=== PATIENT | male | born 1940 | race Caucasian/White ===

== ENCOUNTER 2017-01-17 23:52 | Emergency (ER) | payer MEDICARE ==
[~2017-01-17] VITALS: Ht 175.3 cm; Wt 75.0 kg
[~2017-01-17 23:52] MED LIST: 00186-0370-20 IH; BUFFERED ASPIRIN; CARAFATE1 GM PO; CEPHALEXIN500 M1 PO; CLOPIDOGREL; HYZAAR 12.5 MG-1 TAB PO; LEVAQUIN; LOPRESSOR; OMEPRAZOLE DR20 MG PO; PRILOSEC 20MG20 MG PO; SEPTRA DS 8001 TAB PO; ST. JOSEPH81 M2 PO; TOPROL XL 25MG25 MG PO; TYLENOL 500MG500 MG PO; ZYRTEC 10MG10 MG PO; [UNRECOGNIZED DRUG - OTHER] PO
[2017-01-17 23:56] VITALS: TEMP 97.9
[2017-01-18] MEDS ORDERED: MUCINEX 60600 MG/TA1 PO (00:57)
[2017-01-18] MEDS ORDERED: PROTONIX 40MG T40 MG PO (00:57)
[2017-01-18] MEDS ORDERED: SPIRIVA RE2.5 MCG/Ac IH (00:58)
[2017-01-18] MEDS ORDERED: PREDNISONE20 MG PO (01:09)
[2017-01-18 01:30] VITALS: BP 144/84; PULSE 79
== END 2017-01-18 01:31 | disposition home or self-care (01) ==
LOC: COL.ER 23:52
DX: J44.1 Chronic obstructive pulmonary disease with (acute) exacerbation (principal); Z79.82 Long term (current) use of aspirin
CPT/HCPCS: J7512

== ENCOUNTER 2017-05-26 11:48 | Emergency (ER) | payer MEDICARE ==
[~2017-05-26] VITALS: Ht 175.3 cm; Wt 77.3 kg
[~2017-05-26 11:48] MED LIST changes: +MUCINEX 60600 MG/TA1 PO; +PREDNISONE20 MG PO; +PROTONIX 40MG T40 MG PO; +SPIRIVA RE2.5 MCG/Ac IH
[2017-05-26 11:50] VITALS: TEMP 98
[2017-05-26 12:23] LABS: BASO # 0.1 (0.0-0.2); BASO % 1.1 % (0.0-2.0); EOS # 0.6 (0.0-0.7); EOS % 8.5 % (0-4.0); GRAN % 56.8 % (42.2-75.2); LYMPH # 1.7 (1.2-3.4); LYMPH % 23.8 % (20.0-51.0); MEAN CELL VOLUME 78 fl (80.0-100.0); MEAN CORPUSCULAR HGB CONC 30 g/dl (33.0-37.0); MEAN PLATELET VOLUME 9.4 fl (7.4-10.4); MONO # 0.7 (0.1-0.6); MONO % 9.5 % (1.7-9.3); PLATELET COUNT 325 K/mm3 (130-400); RED BLOOD COUNT 3.86 M/mm3 (4.20-5.60); REDCELL DISTRIBUTION WIDTH-CV 15.8 % (11.5-14.5)
[2017-05-26 12:25] LABS: HEMATOCRIT 30.2 % (42.0-52.0); HEMOGLOBIN 8.9 g/dl (13.5-18.0); MEAN CORPUSCULAR HEMOGLOBIN 23 pg (27.0-31.0)
[2017-05-26 12:29] LABS: PROTHROMBIN TIME 11.4 SECONDS (9.7-12.8)
[2017-05-26 12:36] LABS: ALANINE AMINOTRANSFERASE 29 U/L (21-72); ALBUMIN 4.4 gm/dL (3.5-5.0); ALKALINE PHOSPHATASE 79 U/L (50-136); ANION GAP 12 mmol/L (7-16); AST,SGOT 30 U/L (15-37); BILIRUBIN,TOTAL 0.3 mg/dL (0.0-1.0); BLOOD UREA NITROGEN 23 mg/dL (9-20); CALCIUM 10.2 mg/dL (8.4-10.2); CARBON DIOXIDE 24 mmol/L (22-30); CHLORIDE 102 mmol/L (98-107); GLUCOSE 109 mg/dL (74-106); SODIUM 139 mmol/L (137-145); TOTAL PROTEIN 7.6 gm/dL (6.4-8.2)
[2017-05-26] MEDS ORDERED: SINGULAIR 110 MG/TAB PO (12:38)
[2017-05-26] MEDS ORDERED: FLONASEALLERGY NS (12:39)
[2017-05-26] MEDS ORDERED: PROAIR HFA0.09 MG/AC IH (12:40)
[2017-05-26] MEDS ORDERED: TYLENOL 500MG500 MG PO (12:41)
[2017-05-26] MEDS ORDERED: EPA FISH OIL1 SGL PO (12:42)
[2017-05-26] MEDS ORDERED: PROBIOTIC FORMU1 CAP PO (12:43)
[2017-05-26] MEDS ORDERED: MULTI VITAMINS1 TAB PO (12:43)
[2017-05-26 13:04] LABS: TROPONIN-I < 0.012 ng/mL (0.000-0.034)
[2017-05-26 14:56] VITALS: BP 128/63; PULSE 79
== END 2017-05-26 14:59 | disposition home or self-care (01) ==
LOC: COL.ER 11:48
PROVIDERS: Emergency Medicine
DX: I48.91 Unspecified atrial fibrillation (principal); D50.9 Iron deficiency anemia, unspecified; I25.10 Atherosclerotic heart disease of native coronary artery without angina pectoris; I10 Essential (primary) hypertension; Z95.5 Presence of coronary angioplasty implant and graft; Z79.82 Long term (current) use of aspirin
CPT/HCPCS: J0282; J7030; J7050; J7060

== ENCOUNTER 2017-06-07 12:56 | Outpatient (RCR) | payer MEDICARE ==
[~2017-06-07] VITALS: Ht 175.3 cm; Wt 79.8 kg
[~2017-06-07 12:56] MED LIST changes: +EPA FISH OIL1 SGL PO; +FLONASEALLERGY NS; +MULTI VITAMINS1 TAB PO; +PROAIR HFA0.09 MG/AC IH; +PROBIOTIC FORMU1 CAP PO; +SINGULAIR 110 MG/TAB PO
[2017-06-07 13:23] LABS: HEMATOCRIT 25.1 % (42.0-52.0); HEMOGLOBIN 7.2 g/dl (13.5-18.0)
[2017-06-07 14:50] VITALS: BP 115/59; PULSE 64; TEMP 98
[2017-06-07 15:03] VITALS: BP 120/56; PULSE 68; TEMP 98
[2017-06-07 15:18] VITALS: BP 115/68; PULSE 66; TEMP 98
[2017-06-07 15:40] VITALS: BP 128/56; PULSE 68; TEMP 98
[2017-06-07 15:56] VITALS: BP 116/59; PULSE 66; TEMP 98
[2017-06-07 16:26] VITALS: BP 120/49; PULSE 64; TEMP 98
== END 2017-06-07 16:28 | disposition home or self-care (01) ==
LOC: EUO 12:56
PROVIDERS: Internal Medicine
DX: D62 Acute posthemorrhagic anemia (principal)
CPT/HCPCS: J7050; P9016

== ENCOUNTER 2018-05-13 23:51 | Emergency (ER) | payer MEDICARE ==
[~2018-05-13] VITALS: Ht 175.3 cm; Wt 82.3 kg
[2018-05-13 23:56] VITALS: TEMP 97.8
[2018-05-14] MEDS ORDERED: NATURAL IRON65 MG PO (00:08)
[2018-05-14] MEDS ORDERED: KAPSPARGO SPRIN25 MG PO (00:12)
[2018-05-14] MEDS ORDERED: ZYRTEC10MGSGL PO (00:12)
[2018-05-14] MEDS ORDERED: DOXYCYCLINE 10100 MG PO (00:13)
[2018-05-14] MEDS ORDERED: MUCINEX DM 30 M1 TE1 (00:13)
[2018-05-14] MEDS ORDERED: PREDNISONE10 MG PO (00:14)
[2018-05-14 00:39] LABS: HEMATOCRIT 39.9 % (42.0-52.0); HEMOGLOBIN 13.5 g/dl (13.5-18.0); MEAN CELL VOLUME 91 fl (80.0-100.0); MEAN CORPUSCULAR HEMOGLOBIN 31 pg (27.0-31.0); MEAN CORPUSCULAR HGB CONC 34 g/dl (33.0-37.0); MEAN PLATELET VOLUME 8.9 fl (7.4-10.4); PLATELET COUNT 289 K/mm3 (130-400); RED BLOOD COUNT 4.39 M/mm3 (4.20-5.60)
[2018-05-14 00:50] LABS: ALANINE AMINOTRANSFERASE 13 U/L (21-72); ALBUMIN 3.7 gm/dL (3.5-5.0); ALKALINE PHOSPHATASE 58 U/L (50-136); ANION GAP 11 mmol/L (7-16); AST,SGOT 15 U/L (15-37); BILIRUBIN,TOTAL 0.3 mg/dL (0.0-1.0); BLOOD UREA NITROGEN 28 mg/dL (9-20); CALCIUM 9.5 mg/dL (8.4-10.2); CARBON DIOXIDE 24 mmol/L (22-30); CHLORIDE 102 mmol/L (98-107); CREATININE, serum 1.12 mg/dL (0.66-1.25); GLUCOSE 151 mg/dL (74-106); LIPASE 81 U/L (23-300); POTASSIUM 4.3 mmol/L (3.4-5.0); SODIUM 137 mmol/L (137-145); TOTAL PROTEIN 6.5 gm/dL (6.4-8.2)
[2018-05-14 01:05] LABS: TROPONIN-I < 0.012 ng/mL (0.000-0.034)
[2018-05-14 01:19] LABS: BAND 4 % (0-10); LYMPHOCYTE 16 % (20.0-51.0); NEUTROPHILS 73 % (42.0-75.2); PLATELET ESTIMATE NORMAL (NORMAL)
[2018-05-14 01:36] VITALS: BP 118/70; PULSE 74
== END 2018-05-14 01:37 | disposition home or self-care (01) ==
LOC: COL.ER 23:51
PROVIDERS: Emergency Medicine
DX: I10 Essential (primary) hypertension (principal); J44.9 Chronic obstructive pulmonary disease, unspecified; I48.91 Unspecified atrial fibrillation; Z79.82 Long term (current) use of aspirin; Z79.51 Long term (current) use of inhaled steroids; Z87.891 Personal history of nicotine dependence

== ENCOUNTER 2018-12-26 22:40 | Emergency (ER) | payer MEDICARE, OTHER ==
[~2018-12-26] VITALS: Ht 175.3 cm; Wt 81.8 kg
[~2018-12-26 22:40] MED LIST changes: +DOXYCYCLINE 10100 MG PO; +KAPSPARGO SPRIN25 MG PO; +MUCINEX DM 30 M1 TE1; +NATURAL IRON65 MG PO; +PREDNISONE10 MG PO; +ZYRTEC10MGSGL PO
[2018-12-26 22:44] VITALS: TEMP 97.7
[2018-12-26] MEDS ORDERED: SINGULAIR 110 MG/TAB PO (23:05)
[2018-12-26] MEDS ORDERED: HCTZ 25MG TAB25 MG PO (23:08)
[2018-12-26] MEDS ORDERED: COZAAR100 MG PO (23:08)
[2018-12-26 23:10] LABS: BASO # 0.1 (0.0-0.2); BASO % 1.1 % (0.0-2.0); EOS # 0.9 (0.0-0.7); EOS % 13.7 % (0-4.0); GRAN # 3.7 (1.4-6.5); GRAN % 56.5 % (42.2-75.2); HEMATOCRIT 39.4 % (42.0-52.0); HEMOGLOBIN 12.9 g/dl (13.5-18.0); LYMPH # 1.3 (1.2-3.4); LYMPH % 20.2 % (20.0-51.0); MEAN CELL VOLUME 94 fl (80.0-100.0); MEAN CORPUSCULAR HEMOGLOBIN 31 pg (27.0-31.0); MEAN CORPUSCULAR HGB CONC 33 g/dl (33.0-37.0); MEAN PLATELET VOLUME 9.4 fl (7.4-10.4); MONO # 0.5 (0.1-0.6); MONO % 8.2 % (1.7-9.3); PLATELET COUNT 241 K/mm3 (130-400); RED BLOOD COUNT 4.19 M/mm3 (4.20-5.60)
[2018-12-26 23:11] LABS: PROTHROMBIN TIME 11.3 SECONDS (9.7-12.8)
[2018-12-26 23:17] LABS: ALANINE AMINOTRANSFERASE 14 U/L (21-72); ALBUMIN 4.4 gm/dL (3.5-5.0); ALKALINE PHOSPHATASE 72 U/L (50-136); ANION GAP 13 mmol/L (7-16); AST,SGOT 23 U/L (15-37); BILIRUBIN,TOTAL 0.4 mg/dL (0.0-1.0); BLOOD UREA NITROGEN 25 mg/dL (9-20); CALCIUM 9.2 mg/dL (8.4-10.2); CARBON DIOXIDE 26 mmol/L (22-30); CHLORIDE 105 mmol/L (98-107); CREATININE, serum 1.37 (0.66-1.25); GLUCOSE 114 mg/dL (74-106); POTASSIUM 3.9 mmol/L (3.4-5.0); SODIUM 144 mmol/L (137-145); TOTAL PROTEIN 7.6 gm/dL (6.4-8.2)
[2018-12-26 23:28] LABS: TROPONIN-I < 0.012 ng/mL (0.000-0.035)
[2018-12-27] MEDS ORDERED: PREDNISONE20 MG PO (01:20)
[2018-12-27] MEDS ORDERED: DOXYCYCLINE 10100 MG PO (01:20)
[2018-12-27 02:25] VITALS: BP 121/88; PULSE 108
== END 2018-12-27 02:25 | disposition home or self-care (01) ==
LOC: COL.ER 22:40
PROVIDERS: Emergency Medicine
DX: J44.1 Chronic obstructive pulmonary disease with (acute) exacerbation (principal); I10 Essential (primary) hypertension; I48.91 Unspecified atrial fibrillation; Z87.891 Personal history of nicotine dependence; Z79.82 Long term (current) use of aspirin; Z79.51 Long term (current) use of inhaled steroids
CPT/HCPCS: J2930; J3475; J7040

== ENCOUNTER → 2019-01-04 | Outpatient (CLI) | payer MEDICARE ==
[~2019-01-04] MED LIST changes: +COZAAR100 MG PO; +HCTZ 25MG TAB25 MG PO
[2019-01-04 10:03] LABS: BASO # 0.1 (0.0-0.2); BASO % 0.6 % (0.0-2.0); EOS # 0.4 (0.0-0.7); GRAN # 7.6 (1.4-6.5); GRAN % 69.7 % (42.2-75.2); HEMATOCRIT 37.7 % (42.0-52.0); HEMOGLOBIN 12.5 g/dl (13.5-18.0); LYMPH # 1.3 (1.2-3.4); MEAN CELL VOLUME 92 fl (80.0-100.0); MEAN CORPUSCULAR HEMOGLOBIN 31 pg (27.0-31.0); MEAN CORPUSCULAR HGB CONC 33 g/dl (33.0-37.0); MEAN PLATELET VOLUME 9.6 fl (7.4-10.4); MONO % 9.1 % (1.7-9.3); PLATELET COUNT 296 K/mm3 (130-400); RED BLOOD COUNT 4.09 M/mm3 (4.20-5.60)
[2019-01-04 10:58] LABS: ALBUMIN 3.3 gm/dL (3.5-5.0); BILIRUBIN,TOTAL 0.6 mg/dL (0.0-1.0); CALCIUM 9.2 mg/dL (8.4-10.2); CREATININE, serum 1.16 (0.66-1.25); POTASSIUM 3.8 mmol/L (3.4-5.0)
[2019-01-04 11:13] LABS: TROPONIN-I 0.022 ng/mL (0.000-0.035)
== END ==
LOC: ZCOL.LAB 09:52
PROVIDERS: Nurse Practitioner Family
DX: I48.0 Paroxysmal atrial fibrillation (principal); I25.10 Atherosclerotic heart disease of native coronary artery without angina pectoris

== ENCOUNTER 2020-05-02 11:43 | Outpatient (CLI) | payer MEDICARE ==
[~2020-05-02] VITALS: Ht 175.3 cm; Wt 79.5 kg
[2020-05-02 12:12] VITALS: BP 134/63; PULSE 64; TEMP 99
[2020-05-02] MEDS ORDERED: MUCINEX 60600 MG/TA1 PO (12:23)
[2020-05-02] MEDS ORDERED: IRON TABLETS325 MG PO (12:24)
[2020-05-02] MEDS ORDERED: HCTZ 25MG TAB25 MG PO (12:24)
[2020-05-02] MEDS ORDERED: COZAAR100 MG PO (12:24)
[2020-05-02] MEDS ORDERED: ASPIRIN E.C. 8181 MG PO (12:24)
[2020-05-02] MEDS ORDERED: FISH OIL 500 M1 EAC1 PO (12:25)
[2020-05-02] MEDS ORDERED: TRELEGY ELLIPT1 EACH IH (12:25)
[2020-05-02] MEDS ORDERED: ATROVENT I0.2 MG/1 M IH (12:25)
[2020-05-02] MEDS ORDERED: TOPROL XL 25MG25 MG PO (12:26)
[2020-05-02] MEDS ORDERED: SINGULAIR 110 MG/TAB PO (12:26)
[2020-05-02] MEDS ORDERED: ZYRTEC 10MG10 MG PO (12:26)
[2020-05-02] MEDS ORDERED: ATROVENT INHALE14 GM IH (12:27)
[2020-05-02 12:30] VITALS: BP 131/62; PULSE 61
[2020-05-02 13:00] VITALS: BP 119/58; PULSE 63; TEMP 98.2
[2020-05-02 13:30] VITALS: BP 119/74; PULSE 70
[2020-05-02 14:00] VITALS: BP 118/73; PULSE 61; TEMP 98.3
--- NOTE | 2020-05-02 14:20 | NUR ---
Pt tolerates BAM infusion without issue. INT DC'd with catheter intact and dressing intact. He exits dept under own power, wrapped in bath blanket per protocol.
== END 2020-05-02 14:20 | disposition home or self-care (01) ==
LOC: EUO 11:43
DX: U07.1 COVID-19 (principal)
CPT/HCPCS: J7050

== ENCOUNTER 2020-09-05 16:15 | Emergency (ER) | payer MEDICARE ==
[~2020-09-05] VITALS: Ht 172.7 cm; Wt 77.7 kg
[~2020-09-05 16:15] MED LIST changes: +ASPIRIN E.C. 8181 MG PO; +ATROVENT I0.2 MG/1 M IH; +ATROVENT INHALE14 GM IH; +BRILINTA90 MG PO; +FISH OIL 500 M1 EAC1 PO; +IRON TABLETS325 MG PO; +LIPITOR 80MG80 MG PO; +OMEGA-3 1000 MG1 CAP PO; +PRIL40 PO; +TRELEGY ELLIPT1 EACH IH
[2020-09-05 16:22] VITALS: TEMP 98.3
[2020-09-05 16:47] LABS: BASO # 0.1 (0.0-0.2); BASO % 0.7 % (0.0-2.0); EOS # 0.1 (0.0-0.7); EOS % 1.4 % (0-4.0); GRAN # 5.1 (1.4-6.5); GRAN % 70.9 % (42.2-75.2); LYMPH # 1.3 (1.2-3.4); LYMPH % 18.5 % (20.0-51.0); MEAN CELL VOLUME 91 fl (80.0-100.0); MEAN CORPUSCULAR HGB CONC 30 g/dl (33.0-37.0); MEAN PLATELET VOLUME 8.7 fl (7.4-10.4); MONO # 0.6 (0.1-0.6); MONO % 7.9 % (1.7-9.3); PLATELET COUNT 336 K/mm3 (130-400); RED BLOOD COUNT 3.15 M/mm3 (4.20-5.60); REDCELL DISTRIBUTION WIDTH-CV 15.3 % (11.5-14.5)
[2020-09-05 16:48] LABS: HEMATOCRIT 28.6 % (42.0-52.0); HEMOGLOBIN 8.7 g/dl (13.5-18.0); MEAN CORPUSCULAR HEMOGLOBIN 28 pg (27.0-31.0)
[2020-09-05 16:54] LABS: INR 1.2 (0.8-3.0)
[2020-09-05 16:59] LABS: ALANINE AMINOTRANSFERASE 36 U/L (4-49); ALBUMIN 3.9 gm/dL (3.5-5.0); ALKALINE PHOSPHATASE 167 U/L (50-136); ANION GAP 12 mmol/L (7-16); AST,SGOT 59 U/L (15-37); BILIRUBIN,TOTAL 0.4 mg/dL (0.0-1.0); BLOOD UREA NITROGEN 28 mg/dL (9-20); CALCIUM 9.5 mg/dL (8.4-10.2); CARBON DIOXIDE 22 mmol/L (22-30); CHLORIDE 106 mmol/L (98-107); CREATININE, serum 1.32 (0.66-1.25); GLUCOSE 119 mg/dL (74-106); POTASSIUM 3.7 mmol/L (3.4-5.0); SODIUM 139 mmol/L (137-145); TOTAL PROTEIN 7.3 gm/dL (6.4-8.2)
[2020-09-05 17:12] LABS: TROPONIN-I < 0.012 ng/mL (0.000-0.035)
[2020-09-05] MEDS ORDERED: TRELEGY ELLIPT1 EACH IH (17:55)
--- NOTE | 2020-09-05 17:58 | NUR ---
Report recieved from BALTA Ernandez.
[2020-09-05] MEDS ORDERED: PLAVIX 75MG TAB75 MG PO (18:00)
[2020-09-05] MEDS ORDERED: LASIX 20MG TABL20 MG PO (19:58)
[2020-09-05] MEDS ORDERED: CEFTIN500 MG PO ×2 (19:58→20:00)
[2020-09-05] MEDS ORDERED: MONODOX100 PO ×2 (19:58→20:00)
[2020-09-05] MEDS ORDERED: DECADRON 4MG TAB4 MG PO ×2 (19:59→20:00)
[2020-09-05 20:19] VITALS: BP 111/62; PULSE 89
[2020-09-05] MEDS ORDERED: TOPROL XL 25MG25 MG PO (20:22)
== END 2020-09-05 20:19 | disposition home or self-care (01) ==
LOC: COL.ER 16:15 → MEDICAL 17:31
PROVIDERS: Nurse Practitioner Primary Care
DX: D63.1 Anemia in chronic kidney disease (principal); C64.9 Malignant neoplasm of unspecified kidney, except renal pelvis; R91.8 Other nonspecific abnormal finding of lung field; C78.7 Secondary malignant neoplasm of liver and intrahepatic bile duct; I10 Essential (primary) hypertension; J44.9 Chronic obstructive pulmonary disease, unspecified; K21.9 Gastro-esophageal reflux disease without esophagitis; I25.2 Old myocardial infarction; I48.20 Chronic atrial fibrillation, unspecified; Z87.891 Personal history of nicotine dependence; Z95.5 Presence of coronary angioplasty implant and graft; Z88.8 Allergy status to other drugs, medicaments and biological substances; Z79.82 Long term (current) use of aspirin; Z79.51 Long term (current) use of inhaled steroids; Z79.899 Other long term (current) drug therapy
CPT/HCPCS: J1100; J7030; Q9967

== ENCOUNTER → 2020-09-09 | Outpatient (CLI) | payer MEDICARE ==
[~2020-09-09] MED LIST changes: +CEFTIN500 MG PO; +DECADRON 4MG TAB4 MG PO; +DULCOLAX TAB5 MG PO; +LASIX 20MG TABL20 MG PO; +MONODOX100 PO; +PEPTO BISMOL262 MG PO; +PLAVIX 75MG TAB75 MG PO; +TYLENOL 8 HR PO
[2020-09-09 15:10] LABS: MEAN CELL VOLUME 90 fl (80.0-100.0); MEAN CORPUSCULAR HGB CONC 30 g/dl (33.0-37.0); MEAN PLATELET VOLUME 8.8 fl (7.4-10.4); PLATELET COUNT 479 K/mm3 (130-400); RED BLOOD COUNT 3.35 M/mm3 (4.20-5.60); REDCELL DISTRIBUTION WIDTH-CV 15.2 % (11.5-14.5)
[2020-09-09 15:15] LABS: HEMATOCRIT 30.2 % (42.0-52.0); HEMOGLOBIN 9.1 g/dl (13.5-18.0); MEAN CORPUSCULAR HEMOGLOBIN 27 pg (27.0-31.0)
[2020-09-09 15:16] LABS: INR 1.2 (0.8-3.0); PROTHROMBIN TIME 13.1 SECONDS (9.7-12.8)
[2020-09-09 16:16] LABS: HYPOCHROMIA 1+; LYMPHOCYTE 8 % (20.0-51.0); NEUTROPHILS 88 % (42.0-75.2)
== END ==
LOC: COL.LAB 13:56
PROVIDERS: Internal Medicine Pulmonary Disease
DX: R91.8 Other nonspecific abnormal finding of lung field (principal)

== ENCOUNTER 2020-09-11 07:05 | Day surgery (SDC) | payer MEDICARE ==
[~2020-09-11] VITALS: Ht 172.7 cm; Wt 74.2 kg
[~2020-09-11 07:05] MED LIST changes: -DULCOLAX TAB5 MG PO; -PEPTO BISMOL262 MG PO; -TYLENOL 8 HR PO
[2020-09-11 07:35] VITALS: BP 137/71; PULSE 82; TEMP 98.1
[2020-09-11] MEDS ORDERED: TOPROL XL 25MG25 MG PO (07:41)
[2020-09-11] MEDS ORDERED: PREDNISONE20 MG PO (07:42)
[2020-09-11] MEDS ORDERED: PLAVIX 75MG TAB75 MG PO (07:43)
[2020-09-11] MEDS ORDERED: CEFTIN500 MG PO (07:43)
[2020-09-11] MEDS ORDERED: PEPTO BISMOL262 MG PO (07:44)
[2020-09-11] MEDS ORDERED: TYLENOL 8 HR PO (07:44)
[2020-09-11] MEDS ORDERED: DULCOLAX TAB5 MG PO (07:44)
[2020-09-11 07:45] LABS: INR 1.1 (0.8-3.0); PROTHROMBIN TIME 12.7 SECONDS (9.7-12.8)
[2020-09-11] MEDS ORDERED: PROAIR HFA0.09 MG/AC IH (07:45)
[2020-09-11 08:19] LABS: MEAN CELL VOLUME 90 fl (80.0-100.0); MEAN CORPUSCULAR HGB CONC 30 g/dl (33.0-37.0); MEAN PLATELET VOLUME 8.9 fl (7.4-10.4); PLATELET COUNT 468 K/mm3 (130-400); RED BLOOD COUNT 3.12 M/mm3 (4.20-5.60)
[2020-09-11 08:20] LABS: HEMOGLOBIN 8.3 g/dl (13.5-18.0); MEAN CORPUSCULAR HEMOGLOBIN 27 pg (27.0-31.0)
[2020-09-11 08:57] LABS: ANISOCYTOSIS 1+; BAND 2 % (0-10); EOSINOPHIL 1 % (0-4); HYPOCHROMIA 1+; LYMPHOCYTE 13 % (20.0-51.0); NEUTROPHILS 77 % (42.0-75.2); PLATELET ESTIMATE INCREASED (NORMAL)
[2020-09-11 09:35] VITALS: BP 128/80; PULSE 90; TEMP 98.6
--- NOTE | 2020-09-11 09:35 | NUR ---
The patient arrived back to [facility] at this time. The patient appears alert and oriented and denies any pain or nausea at this time. The patient's post procedure vital signs were started at this time. The patient requests to try some ice chips at this time. The patient's daughter is at his bedside at this time. Will continue to monitor the patient.
[2020-09-11 09:50] VITALS: BP 127/69; PULSE 81
--- NOTE | 2020-09-11 09:50 | NUR ---
The patient appears to be tolerating the ice chips well and now requests to try some apple juice. Vital signs continue to appear stable. Call light remains within reach. Will continue to monitor the patient.
[2020-09-11 10:05] VITALS: BP 122/66; PULSE 84
--- NOTE | 2020-09-11 10:05 | NUR ---
The patient has finished his juice and voices a desire to be discharged home. Discharge instructions were reviewed with the patient and his daughter at this time. They both verbalized understanding and has no questions for the nurse at this time. The nurse reinforced with them the doctors instructions regarding the patient's plavix and the need to hold the medication today and that he may restart it tomorrow as long has he doesn't have a lot of blood in his sputum. The patient's IV to his right hand was removed and a pressure dressing was applied to the site.
--- NOTE | 2020-09-11 10:20 | NUR ---
The patient was escorted out via wheelchair to a private vehicle by BALTA Harrington. The patient's belongings and discharge were sent with him. The patient's daughter is present to drive him home.
== END 2020-09-11 10:20 | disposition home or self-care (01) ==
LOC: SDCO 07:05
PROVIDERS: Internal Medicine Pulmonary Disease
DX: C34.12 Malignant neoplasm of upper lobe, left bronchus or lung (principal); J44.9 Chronic obstructive pulmonary disease, unspecified; I25.10 Atherosclerotic heart disease of native coronary artery without angina pectoris; I10 Essential (primary) hypertension; I48.91 Unspecified atrial fibrillation; I21.4 Non-ST elevation (NSTEMI) myocardial infarction; Z20.822 Contact with and (suspected) exposure to COVID-19; Z79.01 Long term (current) use of anticoagulants; Z95.5 Presence of coronary angioplasty implant and graft; Z87.891 Personal history of nicotine dependence; Z79.899 Other long term (current) drug therapy; Z85.520 Personal history of malignant carcinoid tumor of kidney
CPT/HCPCS: J2704; J7120